=== PATIENT | female | born 1985 | race Caucasian/White ===

== ENCOUNTER → 2024-03-14 | Outpatient (CLI) | payer OTHER ==
[~2024-03-14] MED LIST: ACYC400 PO; ALBU90OI INH; AMOX500 PO; ASPI500; AZIT250 PO; BENZ100A PO; CEPH500 PO; CODGUAEL PO; CRUTCH2 USE; CYCL10 PO; DIAZ5 PO; DOXY100 PO; HYDACE10B PO; HYDACE5; HYDACE5 PO; HYDMOR2 PO; HYDPAM50 PO; IBUP200 PO; IBUP600 PO; IBUP800; IBUP800 PO; IMITREX; LIDO5TP TOP; LORA1 PO; MEDR10 PO; MEDR2.5; MIRT15; MUPI2TO TOP; OXYACE5T PO; OXYACE7.5T PO; PROM25 PO; Prednisone10 MG PO; RANI150; RXCODACET PO; RXCYCL10 PO; RXOXYACE PO; SERT100; SULTRIDS PO; TRAM50; TRAM50 PO; VENL75ER; Verotin-Gr Cap1 EACH PO; Zithromax250 MG PO
[2024-03-21 09:17] LABS: HPV HIGH RISK BY TMA Not Detected; HPV SOURCE Cervical/Vag
== END ==
LOC: LAB SHORT 12:55 → LAB 12:55
PROVIDERS: Nurse Practitioner Family
DX: Z12.4 Encounter for screening for malignant neoplasm of cervix (principal)
CPT/HCPCS: 87624; G0123

== ENCOUNTER → 2024-04-08 | Outpatient (CLI) | payer OTHER | END | disposition home or self-care (01) | LOC: LAB SHORT 07:59 → LAB 07:59 | DX: D22.39 Melanocytic nevi of other parts of face (principal); D22.4 Melanocytic nevi of scalp and neck; D49.2 Neoplasm of unspecified behavior of bone, soft tissue, and skin | CPT/HCPCS: 88305 ==